=== PATIENT | male | born 1930 | race Caucasian/White ===

== ENCOUNTER 2016-10-18 22:34 | Emergency (ER) | payer OTHER ==
[~2016-10-18] VITALS: Ht 175.3 cm; Wt 61.9 kg
[~2016-10-18 22:34] MED LIST: ACYCLOVIR200 MG PO; CALCIUM 600 +1 EAC1 PO; CYANOCOBALAM1000 MCG PO; ELIQUIS5 MG PO; KLOR-CON M2020 MEQ PO; LISINOPRIL40 MG PO; MIRTAZAPINE30 MG PO; MONTELUKAST SOD10 MG PO; OMEPRAZOLE20 MG PO; REVLIMID25 MG PO; SIMVASTATIN40 MG PO
[2016-10-18 23:10] LABS: EOSINOPHIL (%) 0.7 % (0-5); HEMATOCRIT 31.7 % (38.0-50.0); IMMATURE GRANULOCYTE (%) 0.7 % (0.0-0.7); LYMPHOCYTE COUNT 0.7 K/uL (1.0-2.8); MCH 33.7 PG (29.0-34.0); MCHC 33.1 G/DL (30.0-36.0); MCV 101.6 FL (86-99); MEAN PLAT.VOLUME 10.7 uM^3 (9.0-12.4); MONOCYTE (%) 8.2 % (3-12); MONOCYTE COUNT 0.2 K/uL (0-0.8); NEUTROPHIL (%) 67.1 % (45-76); PLATELET COUNT 109 K/uL (156-360); RBC DIS.WIDTH-CV 14.9 % (11.8-14.6); RBC DIS.WIDTH-SD 55.8 % (39-53); RED BLOOD COUNT 3.12 M/uL (4.00-5.50); WHITE BLOOD COUNT 2.9 K/uL (4.1-10.2)
[2016-10-18 23:36] LABS: TROP-I INTERPRETATION NEGATIVE; TROPONIN-I 0.02 ng/mL (0.0-0.30)
[2016-10-18 23:55] LABS: CHLORIDE 112 mEq/L (99-109); POTASSIUM 3.8 mEq/L (3.7-5.4); SODIUM 142 mEq/L (136-147)
[2016-10-18 23:57] LABS: GLUCOSE 121 mg/dL (70-99)
[2016-10-18 23:58] LABS: ANION GAP 9 MEQ/L (2-14)
[2016-10-18 23:59] LABS: TOTAL BILIRUBIN 0.6 mg/dL (0.0-1.0)
[2016-10-19 00:01] LABS: ALKALINE PHOSPHATASE 44 IU/L (3-129); GFR ESTIMATE (CALCULATED) > 59 mL/min/
[2016-10-19 00:02] LABS: UREA NITROGEN (BUN) 16 mg/dL (9-23)
[2016-10-19 00:04] LABS: LIPASE 8 U/L (1.0-51.0)
[2016-10-19 01:13] LABS: ADD MIUA? YES; BILIRUBIN NEGATIVE; BLOOD MODERATE; COLOR YELLOW ((YELLOW)); GLUCOSE (STRIP) 50; KETONES 5; LEUKOCYTES NEGATIVE; NITRITE NEGATIVE; PROTEIN (STRIP) 30; SPECIFIC GRAVITY 1.017 (1.000-1.030); UROBILINOGEN 0.2 MG/DL (0.2-1.0)
[2016-10-19 01:16] LABS: BACTERIA NONE SEEN /HPF; EPITHELIAL CELLS RARE /HPF; HYALINE CASTS 0-5 /LPF; MUCUS TRACE /LPF; UCUL ADDED? NO; WHITE BLOOD CELLS 0-5 /HPF (0-5)
[2016-10-19] MEDS ORDERED: ZOFRAN ODT4 MG PO (01:33)
[2016-10-19 02:20] VITALS: BP 136/88
== END 2016-10-19 02:21 | disposition home or self-care (01) ==
LOC: EME 22:34
PROVIDERS: Emergency Medicine
DX: R11.2 Nausea with vomiting, unspecified (principal); E78.5 Hyperlipidemia, unspecified; I10 Essential (primary) hypertension
CPT/HCPCS: 80053; 81003; 83690; 84484; 85025; 93005; 99281; 99284; J7030

== ENCOUNTER 2017-05-12 12:39 | Inpatient (IN) | payer OTHER ==
[~2017-05-12] VITALS: Ht 177.8 cm; Wt 62.1 kg
[~2017-05-12 12:39] MED LIST changes: +LISINOPRIL20 MG PO; -LISINOPRIL40 MG PO; +ZOFRAN ODT4 MG PO
[2017-05-12 13:49] LABS: HEMATOCRIT 28.1 % (38.0-50.0); HEMOGLOBIN 9.1 G/DL (12.5-16.6); MCH 34.2 PG (29.0-34.0); MCHC 32.4 G/DL (30.0-36.0); MCV 105.6 FL (86-99); PLATELET COUNT 132 K/uL (156-360); RBC DIS.WIDTH-CV 17.2 % (11.8-14.6); RBC DIS.WIDTH-SD 67.6 % (39-53); RED BLOOD COUNT 2.66 M/uL (4.00-5.50); WHITE BLOOD COUNT 7.5 K/uL (4.1-10.2)
[2017-05-12 14:09] LABS: TROP-I INTERPRETATION NEGATIVE; TROPONIN-I 0.29 ng/mL (0.0-0.30)
[2017-05-12 14:41] LABS: ALBUMIN 3.2 G/DL (3.2-4.8); ALKALINE PHOSPHATASE 34 IU/L (3-129); ALT (GPT) 9 IU/L (3-49); AST (GOT) 27 IU/L (2-34); CHLORIDE 110 MEQ/L (99-109); CREATINE KINASE 877 IU/L (1-294); CREATININE 1.2 MG/DL (0.6-1.3); GFR ESTIMATE (CALCULATED) > 59 mL/min/ (58.99-99999); GLUCOSE 93 mg/dL (70-99); MAGNESIUM 1.3 mg/dl (1.3-2.7); POTASSIUM 3.4 MEQ/L (3.7-5.4); SODIUM 146 MEQ/L (136-147); TOTAL PROTEIN 5.4 G/DL (6.4-8.3); UREA NITROGEN (BUN) 23 mg/dL (9-23)
[2017-05-12 15:08] LABS: ABS NEUTROPHIL COUNT 5.8; ANISOCYTOSIS 2+; BASOPHILS 0.9 %; EOSINOPHIL ABS CT 0; MACROCYTES 2+; METAMYELOCYTES 8.8 %; MONOCYTES 2.6 % (0-9.0); MYELOCYTES 1.8 %; OVALOCYTES 1+; POIKILOCYTOSIS 2+; SEG.NEUTROPHILS 31.9 % (46.0-76.0); TEAR DROP CELLS 1+
[2017-05-12] MEDS ORDERED: EXELON PATCH4.6 MG TD (18:37)
[2017-05-12] MEDS ORDERED: VENTOLIN HFA18 GM IH (18:38)
[2017-05-12 19:57] LABS: APPEARANCE SL.HAZY ((CLEAR)); BILIRUBIN NEGATIVE; BLOOD LARGE; COLOR YELLOW ((YELLOW)); GLUCOSE (STRIP) NEGATIVE; KETONES 5; LEUKOCYTES NEGATIVE; NITRITE NEGATIVE; PROTEIN (STRIP) 30; SPECIFIC GRAVITY 1.017 (1.000-1.030); UROBILINOGEN 0.2 MG/DL (0.2-1.0)
[2017-05-12 20:07] LABS: BACTERIA RARE /HPF; EPITHELIAL CELLS NONE SEEN /HPF; MUCUS 4+ /LPF; RED BLOOD CELLS 0-5 /HPF (0-5); UCUL ADDED? NO; WHITE BLOOD CELLS 0-5 /HPF (0-5)
[2017-05-12 20:57] VITALS: BP 116/57
[2017-05-12 22:47] VITALS: BP 98/56
[2017-05-13] VITALS: BP 98/48
[2017-05-13 03:04] VITALS: BP 100/56
[2017-05-13 06:32] LABS: HEMATOCRIT 24.5 % (38.0-50.0); HEMOGLOBIN 7.8 G/DL (12.5-16.6); MCH 34.1 PG (29.0-34.0); MCHC 31.8 G/DL (30.0-36.0); PLATELET COUNT 105 K/uL (156-360); RBC DIS.WIDTH-CV 17.5 % (11.8-14.6); RBC DIS.WIDTH-SD 69.1 % (39-53); RED BLOOD COUNT 2.29 M/uL (4.00-5.50); WHITE BLOOD COUNT 5.7 K/uL (4.1-10.2)
[2017-05-13 06:34] LABS: CHLORIDE 111 MEQ/L (99-109); CREATININE 1.1 MG/DL (0.6-1.3); GFR ESTIMATE (CALCULATED) > 59 mL/min/ (58.99-99999); GLUCOSE 85 mg/dL (70-99); SODIUM 140 MEQ/L (136-147); UREA NITROGEN (BUN) 27 mg/dL (9-23)
[2017-05-13 06:43] LABS: CREATINE KINASE 1824 IU/L (1-294); POTASSIUM 4.1 MEQ/L (3.7-5.4)
[2017-05-13 07:25] LABS: ABS NEUTROPHIL COUNT 4.2; ANISOCYTOSIS 2+; ATYPICAL LYMPHOCYTE 3.5 %; EOSINOPHIL ABS CT 0; GIANT PLATELETS 1+; HYPOCHROMASIA 1+; LYMPHOCYTES 17.4 % (15.0-45.0); MACROCYTES 1+; METAMYELOCYTES 2.6 %; MONOCYTES 2.6 % (0-9.0); OVALOCYTES 2+; PLAT.SUFFICIENCY DECREASED; POIKILOCYTOSIS 2+; POLYCHROMASIA 1+; SEG.NEUTROPHILS 20.9 % (46.0-76.0); TEAR DROP CELLS 1+; TOX.VACUOLIZATION 1+
[2017-05-13 07:36] VITALS: BP 102/58
[2017-05-13 17:06] VITALS: BP 119/58
[2017-05-14 07:03] VITALS: BP 106/55
[2017-05-14 08:23] LABS: HEMATOCRIT 27.5 % (38.0-50.0); HEMOGLOBIN 8.6 G/DL (12.5-16.6); MCH 32.7 PG (29.0-34.0); MCHC 31.3 G/DL (30.0-36.0); MCV 104.6 FL (86-99); RBC DIS.WIDTH-CV 17.3 % (11.8-14.6); RBC DIS.WIDTH-SD 67.1 % (39-53); RED BLOOD COUNT 2.63 M/uL (4.00-5.50); WHITE BLOOD COUNT 12.2 K/uL (4.1-10.2)
[2017-05-14 08:24] LABS: PLATELET COUNT 146 K/uL (156-360)
[2017-05-14 08:44] LABS: CHLORIDE 112 MEQ/L (99-109); CREATINE KINASE 934 IU/L (1-294); CREATININE 1.2 MG/DL (0.6-1.3); GFR ESTIMATE (CALCULATED) > 59 mL/min/ (58.99-99999); GLUCOSE 127 mg/dL (70-99); IRON 12 MCG/DL (35-150); SODIUM 142 MEQ/L (136-147); TOTAL CK 934 IU/L (1-294); TRANSFERRIN (TIBC) 152.7 mg/dL (215-380); TRANSFERRIN SATUR. 8 % (20-55); UREA NITROGEN (BUN) 33 mg/dL (9-23)
[2017-05-14 08:50] LABS: ABS NEUTROPHIL COUNT 10.3; ANISOCYTOSIS 1+; ATYPICAL LYMPHOCYTE 3.5 %; EOSINOPHIL ABS CT 0; HYPOCHROMASIA 1+; LYMPHOCYTES 11.3 % (15.0-45.0); MACROCYTES 1+; MONOCYTES 0.8 % (0-9.0); OVALOCYTES 2+; PLAT.SUFFICIENCY DECREASED; POIKILOCYTOSIS 2+; SCHISTOCYTES 1+; TEAR DROP CELLS 1+; TOX.VACUOLIZATION 1+; TOXIC GRANULATION 1+
[2017-05-14 08:58] LABS: BAND NEUTROPHILS 12.2 % (0-8.0); SEG.NEUTROPHILS 72.2 % (46.0-76.0)
[2017-05-14 09:54] LABS: CK-MB 2.1 ng/mL (0.0-4.9); CKMB RELATIVE INDEX 0.2 (0.0-3.9)
[2017-05-14 11:33] VITALS: BP 108/56
[2017-05-14 15:16] VITALS: BP 90/52
[2017-05-14 20:03] VITALS: BP 118/68
[2017-05-15] VITALS (7 sets, daily range): BP systolic 100–151; BP diastolic 63–76
[2017-05-15 06:44] LABS: HEMATOCRIT 26.2 % (38.0-50.0); MCH 32.4 PG (29.0-34.0); MCHC 30.5 G/DL (30.0-36.0); MCV 106.1 FL (86-99); PLATELET COUNT 124 K/uL (156-360); RBC DIS.WIDTH-CV 17.5 % (11.8-14.6); RBC DIS.WIDTH-SD 69.4 % (39-53); RED BLOOD COUNT 2.47 M/uL (4.00-5.50); WHITE BLOOD COUNT 8.1 K/uL (4.1-10.2)
[2017-05-15 07:13] LABS: CHLORIDE 113 MEQ/L (99-109); CREATINE KINASE 373 IU/L (1-294); GFR ESTIMATE (CALCULATED) > 59 mL/min/ (58.99-99999); POTASSIUM 3.7 MEQ/L (3.7-5.4); SODIUM 144 MEQ/L (136-147); UREA NITROGEN (BUN) 25 mg/dL (9-23)
[2017-05-15 07:15] LABS: GLUCOSE 90 mg/dL (70-99)
[2017-05-15 07:17] LABS: BASOPHIL (%) 0.1 % (0-1); EOSINOPHIL (%) 0.7 % (0-5); EOSINOPHIL COUNT 0.1 K/uL (0-0.3); IMMATURE GRANULOCYTE (%) 0.2 % (0.0-0.7); LYMPHOCYTE (%) 15.5 % (15-42); LYMPHOCYTE COUNT 1.3 K/uL (1.0-2.8); MONOCYTE (%) 4.1 % (3-12); MONOCYTE COUNT 0.3 K/uL (0-0.8); NEUTROPHIL (%) 79.4 % (45-76); NEUTROPHIL COUNT 6.5 K/uL (1.8-6.4)
[2017-05-16 03:24] VITALS: BP 156/65
[2017-05-16 07:10] VITALS: BP 92/57
[2017-05-16 11:30] VITALS: BP 92/53
[2017-05-16 15:00] VITALS: BP 118/60
[2017-05-16] MEDS ORDERED: CEFTRIAXONE2 G1 IV (19:22)
[2017-05-16] MEDS ORDERED: SIMVASTATIN40 MG PO (19:23)
[2017-05-16] MEDS ORDERED: K-DUR20 MEQ PO ×2 (19:24→19:39)
[2017-05-16] MEDS ORDERED: FUROSEMIDE40 MG PO ×2 (19:24→19:39)
[2017-05-16] MEDS ORDERED: ADVAIR HFA120 INHAL1 IH (19:25)
[2017-05-17 00:46] VITALS: BP 124/64
[2017-05-17 04:00] VITALS: BP 130/64
[2017-05-17 06:40] VITALS: BP 125/61
== END 2017-05-17 14:48 | DRG 871 ==
LOC: EME 12:39 → EDOF 18:22 → ENRESERV 18:39 → 5EAST 20:32
PROVIDERS: Emergency Medicine; Family Medicine Sports Medicine
DX: A40.3 Sepsis due to Streptococcus pneumoniae (principal); J18.9 Pneumonia, unspecified organism; M62.82 Rhabdomyolysis; E86.0 Dehydration; C90.00 Multiple myeloma not having achieved remission; E78.5 Hyperlipidemia, unspecified; E87.70 Fluid overload, unspecified; F03.90 Unspecified dementia, unspecified severity, without behavioral disturbance, psychotic disturbance, mood disturbance, and anxiety; F32.9 Major depressive disorder, single episode, unspecified; I10 Essential (primary) hypertension; I48.2 Chronic atrial fibrillation; I48.92 Unspecified atrial flutter; J45.909 Unspecified asthma, uncomplicated; K21.9 Gastro-esophageal reflux disease without esophagitis; M19.90 Unspecified osteoarthritis, unspecified site; D64.9 Anemia, unspecified; D69.6 Thrombocytopenia, unspecified; Z66 Do not resuscitate; Z79.01 Long term (current) use of anticoagulants; Z85.46 Personal history of malignant neoplasm of prostate; Z90.79 Acquired absence of other genital organ(s); Z86.73 Personal history of transient ischemic attack (TIA), and cerebral infarction without residual deficits; Z88.2 Allergy status to sulfonamides
CPT/HCPCS: 70450; 71010; 71020; 80048; 80053; 81003; 82550; 82550 91; 82553; 82607; 83540; 83605; 83735; 83880; 84466; 84484; 85025; 85027; 87040; 87077; 87181; 87801; 93005; 94640; 94640 76; 94799; 97530 GP; 99202; 99281; 99285; J0456; J0696; J0881; J1630; J1940; J3480; J7030; J7040